=== PATIENT | male | born 1970 | race Hispanic/Latino ===

== ENCOUNTER 2017-05-25 08:29 | Day surgery (SDC) | payer OTHER ==
[2017-05-11 09:53] VITALS: BMI 35.2
[2017-05-25] MEDS ORDERED: Bupivacaine 0.5% Inj(30mL) ONE (10:15)
[2017-05-25] MEDS ORDERED: Midazolam 2 MG/2 ML VIAL ONE (10:33)
[2017-05-25] MEDS ORDERED: Propofol 10 mg/ml Inj (20 ML) ONE (10:33)
[2017-05-25] MEDS ORDERED: Rocuronium 10 mg/ml (5 ml) ONE (10:39)
[2017-05-25] MEDS ORDERED: Lactated Ringer's 1,000 ML IV SCH (10:54)
[2017-05-25] MEDS ORDERED: Morphine 2 mg/ml ISec IVP PRN (10:54)
[2017-05-25] MEDS ORDERED: Neostigmine Methylsulfate 3mg/3ml Syringe IV ONE (11:21)
[2017-05-25] MEDS ORDERED: Glycopyrrolate 0.2 mg/ml (2ml vial) ONE (11:21)
[2017-05-25] MEDS ORDERED: Oxycodone/Acetaminophen 5/325 mg Tab PO PRN (11:37)
[2017-05-25] MEDS ORDERED: Morphine 2 mg/ml ISec ONE (11:39)
--- NOTE | 2017-05-25 11:40 | PCM.SURG1 ---
Surgeon's Initial Post Op Note - Surgeon's Notes Surgeon: Abimael Mendoza MD Food Sales Clerk: BLAZE [id number] Pre-Operative Diagnosis: Ventral hernia Operative Findings: Ventral hernia containing omentum Post-Operative Diagnosis: ventral hernia Operation Performed: Ventrla hernia repair with mesh, omentectomy Specimen/Specimens Removed: omentum Estimated Blood Loss: EBL {In ML}: 20 Date of Surgery/Procedure: 05/25/17 Time of Surgery/Procedure: 11:00
[2017-05-25] MEDS ORDERED: Morphine 2 mg/ml ISec IVP ONE (11:50)
[2017-05-25 12:08] VITALS: RESP 18
[2017-05-25 12:31] LABS: HEMATOCRIT 36.5 % (42.0-52.0); MEAN CELL VOLUME 62.8 fl (80.0-105.0); MEAN CORPUSCULAR HEMOGLOBIN 19.8 pg (25.0-35.0); MEAN CORPUSCULAR HGB CONC 31.5 g/dl (31.0-37.0); PLATELET COUNT 134 10^3/uL (120.0-450.0); RED CELL DISTRIBUTION WIDTH 15.6 % (11.5-14.5); WHITE BLOOD COUNT 4.9 10^3/ul (4.5-11.0)
[2017-05-25 12:39] VITALS: BP 135/81; PULSE 64; TEMP 98.1; O2SAT 96
--- NOTE | 2017-06-04 17:10 | OP ---
PROCEDURE DATE: 05/25/2017 PREOPERATIVE DIAGNOSES: 1. Incarcerated ventral hernia (job related). 2. Obesity. 3. Gastroesophageal reflux disease. POSTOPERATIVE DIAGNOSES: 1. Incarcerated ventral hernia (job related). 2. Obesity. 3. Gastroesophageal reflux disease. PROCEDURE: On 05/25/2017 is a ventral herniorrhaphy with mesh. SURGEON: Abimael Mendoza MD ERP ANALYST: Shubham Azul DO, PGY2 TYPE OF ANESTHESIA: [id number] 0.5/18 mL. ANESTHESIA ADMINISTERED BY: Maldonado Haney MD OPERATIVE INDICATION: The patient is a 47-year-old male who was lifting a heavy object at work developed a sudden onset of an excruciating umbilical pain and the appearance of a mass that is very tender. It is nonreducible at this point and the patient has been referred for recommendation for correction. He has been advised to undergo same day surgical correction with mesh. After fully explaining the procedure, the risks, the alternatives and the anticipated outcomes, he signs the informed consent. OPERATIVE NOTE: The patient was brought from the holding area to the operating room, identified by his wrist band, undergoes timeout procedure and was placed on the operating table in a supine manner. Following the induction of general anesthesia and the insertion of an intralaryngeal mask, sequential compression devices are placed in his lower extremities and the abdomen is electrically clipped, prepped with Hibiclens and chlorhexidine preparation and the patient was aseptically draped. Infiltration from 3 o'clock to 9 o'clock above the umbilicus is employed with the long-acting bupivacaine. An incision is made and carried on through the subcutaneous tissues and down to the anterior fascia. Hemostasis was contained with cautery and the hernia sac is bluntly divided and from the umbilical skin. The hernia sac is now excised at the anterior fascial level and the sac is submitted to pathology in formalin and the content of the hernia sac is reduced into the peritoneal cavity. Digital examination reveals that the anterior wall is free and a 3.5-inch Ventralex mesh is placed, pulled up to the anterior abdominal wall and secured in place with interrupted 2-0 Prolene sutures. The fascia and layers are now infiltrated with more bupivacaine. The area lavaged with normal saline solution and the incision closed with 3-0 subcuticular closure and the AutoSuture skin stapler. A dry dressing was applied. The patient was awakened, extubated and transported to the recovery room in a satisfactory condition. Sponge, instrument and suture count were verified as correct at the end of the procedure. Estimated blood loss during this procedure was less than 5 mL of blood. The surgical forceps fabricator was present throughout the procedure from the beginning to end and was extremely helpful in the dissection and in the repair of the hernia repair reducing the operating time and making the entire procedure entirely a simple matter. Abimael Mendoza MD
== END 2017-05-25 14:20 | disposition home or self-care (01) ==
LOC: SDS 08:29
PROVIDERS: ATTEND Surgery
DX: K43.6 Other and unspecified ventral hernia with obstruction, without gangrene (principal); K21.9 Gastro-esophageal reflux disease without esophagitis; E66.9 Obesity, unspecified; Z68.35 Body mass index [BMI] 35.0-35.9, adult
CPT/HCPCS: 36415; 49561; 49568; 83036; 85027; 88302; C1781; J0690; J2001; J2250; J2270; J2405; J2704; J2710; J3010; J7120 ×2